=== PATIENT | male | born 1960 | race Caucasian/White ===

== ENCOUNTER 2020-03-14 16:27 | Inpatient (IN) | payer OTHER, SELFPAY ==
[~2020-03-14 16:27] MED LIST: Iopamidol-370 76% 500 ML 1 ML ONE
[2020-03-14 17:22] LABS: #Lymphocytes 1.4 thou/uL (1.20-3.40); #Neutrophils 12.1 thou/uL (1.40-6.50); %Basophils 0.2 % (0.0-1.0); %Eosinophils 0.1 % (0.0-10.0); %Lymphocytes 8.9 % (21.0-51.0); %Monocytes 12.8 % (0.0-10.0); Hemoglobin 12.7 g/dL (14.0-18.0); Mean Corpuscular HGB CONC 32.3 g/dL (32.0-36.0); Mean Corpuscular Volume 99.1 fL (78.0-98.0); Mean Platelet Volume 8.4 fL (7.4-10.4); Platelet Count 173 thou/uL (130-400); Red Blood Cell (RBC) Count 3.96 mill/uL (4.70-6.10); White Blood Cell (WBC) Count 15.5 thou/uL (4.8-10.8)
[2020-03-14 17:48] LABS: ALT (SGPT) 11 U/L (8-55); AST (SGOT) 13 U/L (5-34); Albumin 2.9 g/dL (3.4-4.8); Alkaline Phosphatase 81 U/L (40-110); Anion Gap 11 mmol/L (10-20); BUN (Urea Nitrogen) 11 mg/dL (8.4-25.7); Bilirubin, Total 1.7 mg/dL (0.2-1.2); Calc. Creatinine Clearance 0 mL/min (70-130); Calcium 7.9 mg/dL (7.8-10.44); Carbon Dioxide 23 mmol/L (23-31); Chloride 103 mmol/L (98-107); Estimated GFR-MDRD Greater than 90; Globulin 2.6 g/dL (2.4-3.5); Glucose 106 mg/dL (80-115); Potassium 3.4 mmol/L (3.5-5.1); Protein, Total 5.5 g/dL (5.8-8.1); Sodium 134 mmol/L (136-145)
--- NOTE | 2020-03-14 19:06 | ULT ---
ULTRASOUND WITH DOPPLER DUPLEX VENOUS LOWER EXTREMITY LEFT: 03/14/20 HISTORY: 59-year-old male with left lower extremity erythema and pain. TECHNIQUE: Color flow Doppler, spectral waveform analysis of pulsed Doppler, and carreon-scale imaging with zeke lauren and augmentation, were used to evaluate the left common femoral, femoral, popliteal, posterior t ibial, and superficial femoral, veins; and the proximal portions of the profunda femoral and greater saphenous, veins. FINDINGS: There is normal compressibility, demonstration of blood flow by color Doppler and pulsed Doppler, and response to augmentation, in all interrogated veins. There is somewhat severe soft tissue edema at t he distal aspect of the left leg. There are multiple enlarged lymph nodes in the left groin. The larg est one is 4.6 x 3 cm. IMPRESSION: 1. No deep vein thrombosis in the left lower extremity. 2. Somewhat severe edema of distal left leg. 3. Left groin lymphadenopathy. jn[] POS: OFF
--- NOTE | 2020-03-14 20:04 | CT ---
CTA THORAX WITH CONTRAST: 03/14/20 (Computed Tomographic Angiography, chest(noncoronary) with contrast material, and image postprocessin g) (PE protocol) HISTORY: 59-year-old male with cough. TECHNIQUE: IV injection of iodinated contrast: 100 mL Isovue 370. Scan acquisition timing attempted to coincide with iodinated contrast bolus reaching maximal density in pulmonary arteries. 3D MIP reconstructions. FINDINGS: Images of the lower lung zones are degraded by patient breathing motion artifact. Diffuse centrilobular emphysematous changes throughout both lungs, moderate. Broad thin band of chronic consolidation at right middle lobe, broadly abutting anterior and anterola teral pleural surface, with chronic striations radiating centrally. Larger, more confluent such consolidation broadly abutting the posterior pleural surface at the right posterior costophrenic angle. Striations radiating anteriorly in parachute configuration. These nichols ges are suggestive of asbestos related lung disease. There is noncalcified soft tissue density material at the bilateral sintia, right greater than left. No thoracic aortic aneurysm, dissection, or rupture. Questionable tiny right pleural effusion. No pneum othorax. No evidence of thrombus in pulmonary arteries, including branches. There is low attenuation mass-like opacity inferior and medial to the lower portion of the right hilu m, with nonopacified branches extending out from it into the right lower lobe. This is inseparable fr om the left atrium. This may represent thrombus within the pulmonary vein centrally and peripherally. IMPRESSION: 1. No evidence of pulmonary thromboembolism. 2. Broad pleural based chronic appearing pulmonary consolidations involving right middle lobe an d right lower lobe, suggestive of round atelectasis, suggestive of asbestos related lung disease. 3. Diffuse moderate centrilobular emphysema. 4. Bilateral hilar lymphadenopathy. 5. Suspicious for thrombus of right lower lobe pulmonary vein and its branches. jn[] POS: OFF
[2020-03-14 21:17] LABS: Bilirubin 1+ (Negative); Blood, Urine Negative (Negative); Clarity Clear (Clear); Glucose, Urine (Dipstick) Normal (Negative); Ketone, Urine Negative (Negative); Leukocyte Negative Leu/uL (Negative); Nitrite Negative (Negative); Protein, Urine (Dipstick) 20 mg/dL (Neg-Trace)
[2020-03-14 21:20] LABS: Specific Gravity, Urine 1.053 (1.002-1.036)
[2020-03-14 21:42] LABS: SARS-CoV-2 NAA Rapid Test Not Detected (NotDetected)
[2020-03-14] MEDS ORDERED: Ondansetron PF 4 MG/2 ML Vial IVP PRN (21:58)
[2020-03-14] MEDS ORDERED: Labetalol HCl 100 MG/20 ML VIAL SLOW IVP PRN (21:58)
[2020-03-14] MEDS ORDERED: hydrALAZINE 20 MG/ML VIAL SLOW IVP PRN (21:58)
[2020-03-14] MEDS ORDERED: cloNIDine 0.1 MG TAB PO PRN (21:58)
[2020-03-14] MEDS ORDERED: Promethazine HCl 12.5 MG in Sodium Chloride 0.9% 50 ML IVPB PRN (21:58)
[2020-03-14] MEDS ORDERED: HYDROcodone/Acetaminophen 5/325 mg Tablet PO PRN (21:58)
[2020-03-14] MEDS ORDERED: Morphine 2 MG/ML VIAL SLOW IVP PRN (21:58)
[2020-03-14] MEDS ORDERED: CEFAZOLIN 2 GM in Premix Bag 1 BAG IVPB SCH (22:00)
[2020-03-14] MEDS ORDERED: Electrolyte Replacement Protoc 1 EACH EACH FS SCH (22:00)
--- NOTE | 2020-03-14 22:03 | PDOC.HHP ---
Hospitalist HPI - History of Present Illness Rash History of Present Illness: Patient is a 59 year old male with PMH tobacco abuse who presents as transfer from [place] for LLE swelling and rash x 2 days. Patient reports developing a rapid spreading rash, no focus or purulence, across most of L leg from ankle to knee. He also has a nonproductive cough x 2 days. In [place], labs notable for leukocytosis, normal lactate. CXR with bilateral infiltrates. tachycardic/ leukocytosis, sepsis protocol started, patient recieved 30 cc/kg bolus, blood cultures drawn there, given vanc/cefepime, area of rash demarkated, patient transferred here. covid rule out ordered and negative. LLE doppler ordered and negative for clot. CTA chest here concerning for broad consolidations of RLL and RML, concerning for asbestos related lung injury. Patient to be admitted for further workup and care. Hospitalist ROS - Review of Systems Constitutional: denies: fever, chills, sweats, weakness, malaise, other Eyes: denies: pain, vision change, conjunctivae inflammation, eyelid inflammation, redness, other ENT: denies: ear pain, ear discharge, nose pain, nose discharge, nose congestion , mouth pain, mouth swelling, throat pain, throat swelling, other Respiratory: reports: cough. denies: dry, shortness of breath, hemoptysis, SOB with excertion, pleuritic pain, sputum, wheezing, other Cardiovascular: denies: chest pain, palpitations, orthopnea, paroxysmal noc. dyspnea, edema, light headedness, other Gastrointestinal: denies: nausea, vomiting, abdominal pain, diarrhea, constipation, melena, hematochezia, other Genitourinary: denies: dysuria, frequency, incontinence, hematuria, retention, other Musculoskeletal: denies: neck pain, shoulder pain, arm pain, back pain, hand pain, leg pain, foot pain, other Skin: reports: rash (per hpi). denies: lesions, valentín, bruising, other Neurological: denies: weakness, numbness, incoordination, change in speech, confusion, seizures, other All other systems reviewed; all pertinent +/- noted in HPI/Subj - Medication Medications: reviewed, see admission documents for home medications Hospitalist History - Past Medical History Other Medical History: no pertinent PMH - Past Surgical History Past Surgical History: reports: no pertinent history - Family History Family History: reports: no pertinent history - Social History Smoking Status: Current every day smoker Tobacco Type: cigarettes Drugs: reports: marijuana - Exam General Appearance: NAD, awake alert Eye: PERRL, anicteric sclera ENT: normocephalic atraumatic, no oropharyngeal lesions, moist mucosa Neck: supple, symmetric, no JVD, no thyromegaly, no lymphadenopathy, no carotid bruit Heart: RRR, no murmur, no gallops, no rubs, normal peripheral pulses Respiratory: CTAB, no wheezes, no rales, no ronchi, normal chest expansion, no tachypnea, normal percussion Gastrointestinal: soft, non-tender, non-distended, normal bowel sounds, no palpable masses, no hepatomegaly, no splenomegaly, no bruit Extremities: no cyanosis, no clubbing, no edema Skin: normal turgor Skin - other findings: diffuse erythema and edema of most of L leg, demarkated. no focus/induratio Neurological: cranial nerve grossly intact, normal sensation to touch, no weakness, no focal deficits, no new deficit Musculoskeletal: normal tone, normal strength, no muscle wasting Psychiatric: normal affect, normal behavior, A&O x 3 Hospitalist Results - Labs Result Diagrams: 03/14/20 17:12 03/14/20 17:12 Lab results: WBC 15.5 thou/uL (4.8-10.8) H 03/14/20 17:12 Hgb 12.7 g/dL (14.0-18.0) L 03/14/20 17:12 Hct 39.3 % (42.0-52.0) L 03/14/20 17:12 MCV 99.1 fL (78.0-98.0) H 03/14/20 17:12 Plt Count 173 thou/uL (130-400) 03/14/20 17:12 Neutrophils % 78.0 % (42.0-75.0) H 03/14/20 17:12 Sodium 134 mmol/L (136-145) L 03/14/20 17:12 Potassium 3.4 mmol/L (3.5-5.1) L 03/14/20 17:12 Chloride 103 mmol/L (98-107) 03/14/20 17:12 Carbon Dioxide 23 mmol/L (23-31) 03/14/20 17:12 BUN 11 mg/dL (8.4-25.7) 03/14/20 17:12 Creatinine 0.65 mg/dL (0.7-1.3) L 03/14/20 17:12 Glucose 106 mg/dL (80-115) 03/14/20 17:12 Calcium 7.9 mg/dL (7.8-10.44) 03/14/20 17:12 Total Bilirubin 1.7 mg/dL (0.2-1.2) H 03/14/20 17:12 AST 13 U/L (5-34) 03/14/20 17:12 ALT 11 U/L (8-55) 03/14/20 17:12 Alkaline Phosphatase 81 U/L (40-110) 03/14/20 17:12 C-Reactive Protein 16.49 mg/dL (= or < 0.5) H 03/14/20 17:12 Serum Total Protein 5.5 g/dL (5.8-8.1) L 03/14/20 17:12 Albumin 2.9 g/dL (3.4-4.8) L 03/14/20 17:12 Urine Ketones Negative mg/dL (Negative) 03/14/20 20:57 Urine Blood Negative (Negative) 03/14/20 20:57 Urine Nitrite Negative (Negative) 03/14/20 20:57 Ur Leukocyte Esterase Negative Kenzie/uL (Negative) 03/14/20 20:57 INTERPRETATION CBC abnormal White blood cell count elevated Neutrophils elevated Chemistry normal Liver functions abnormal Total bilirubin elevated C-reactive protein elevated D-dimer elevated. I agree with ED lab interpretation Additional comment: VITAL SIGNS [facility] Mar 14, 2020 21:03 ASIA Winn, Anna BP: 113/79 Pulse: 102 Resp: 22 Temp: 98.1 (Oral) Pain: 0 O2 sat: 96 on (Room Air) Time: 03/14/2020 21:03. Hospitalist H&P A/P - Plan Plan: Patient is a 59 year old male with PMH tobacco abuse who presents as transfer from [place] for LLE swelling and rash x 2 days. # nonpurulent cellulitis # sepsis secondary to cellulitis 2 days of rapidly spreading erythema and edema LLE with no focus of infection, leukocytosis and tachycardia but normal lactic acid. got 30cc/kg bolus. DVT duplex negative. - admit to floor - start ancef - follow blood cultures drawn at [place] - area on leg demarkated, if spread worsens beyond this would likely need broadening of abx and possible surgical evaluation # nonproductive cough, abnormal lung imaging CTA chest here concerning for broad consolidations of RLL and RML, concerning for asbestos related lung injury. covid swab negative - patient would benefit from outpatient pulmonary referral on discharge - azithromycin started DVT/GI ppx
[2020-03-14] MEDS ORDERED: Electrolyte Replacement Protocol FS PRN (22:15)
[2020-03-14] MEDS ORDERED: Azithromycin 500 MG in Syringe 0 ML IVPB ONE (22:27)
[2020-03-14] MEDS ORDERED: Azithromycin 500 MG in Sodium Chloride 0.9% 250 ML 250 ML IVPB SCH (23:00)
[2020-03-15] MEDS: Nicotine 14 MG PATCH TD SCH ×2 (01:12→21:13)
[2020-03-15] MEDS: CEFAZOLIN 2 GM in Premix Bag 1 BAG IVPB SCH ×3 (01:12→18:35)
[2020-03-15 07:37] LABS: Hemoglobin 14.2 g/dL (14.0-18.0); Mean Corpuscular HGB CONC 31.6 g/dL (32.0-36.0); Mean Corpuscular Hemoglobin 32.1 pg (27.0-31.0); Mean Platelet Volume 9.4 fL (7.4-10.4); Platelet Count 177 thou/uL (130-400); RBC Distribution Width 13.3 % (11.5-14.5); Red Blood Cell (RBC) Count 4.43 mill/uL (4.70-6.10); White Blood Cell (WBC) Count 21.4 thou/uL (4.8-10.8)
[2020-03-15 07:57] LABS: Anion Gap 14 mmol/L (10-20); BUN (Urea Nitrogen) 7 mg/dL (8.4-25.7); Calc. Creatinine Clearance 164 mL/min (70-130); Calcium 8.1 mg/dL (7.8-10.44); Carbon Dioxide 18 mmol/L (23-31); Chloride 106 mmol/L (98-107); Estimated GFR-MDRD Greater than 90; Glucose 117 mg/dL (80-115); Potassium 3.9 mmol/L (3.5-5.1); Sodium 134 mmol/L (136-145)
[2020-03-15 08:55] LABS: Band 2 % (5-11); Eosinophils 1 % (0-10); Lymphocytes 16 % (21-51); MDiff Complete? YES; Monocytes 10 % (0-10); Neutrophil 71 % (42-75); Platelet Morphology Comment Appears Adequate; Polychromasia SLIGHT = 2-3 cells (100X) (0-2/hpf)
[2020-03-15] MEDS: Famotidine 20 MG TAB PO SCH ×2 (08:59→21:13)
[2020-03-15] MEDS: Polyethylene Glycol 3350 17 GM Packet PO SCH (09:01)
--- NOTE | 2020-03-15 09:56 | PDOC.HOSPP ---
- Subjective Encounter Date: 03/15/20 Encounter Time: 08:00 Subjective: Patient seen for follow-up regarding cellulitis. Reports left foot pain. Denies fevers. Reports cough. No sputum. - Objective Vital Signs & Weight: Vital Signs (12 hours) Temp Pulse Resp BP Pulse Ox 03/15/20 08:19 98.9 F 95 14 119/65 99 03/15/20 04:00 100.0 F H 106 H 16 105/66 03/15/20 00:54 92 L Weight Weight 181 lb Result Diagrams: 03/15/20 07:29 03/15/20 07:29 Additional Labs: I reviewed patient's labs and MAR EKG Reviewed by me: Yes (Telemetry: NSR) Hospitalist ROS - Review of Systems Respiratory: reports: cough, dry. denies: shortness of breath, hemoptysis, SOB with excertion, pleuritic pain, sputum, wheezing Cardiovascular: denies: chest pain, palpitations, orthopnea, paroxysmal noc. dyspnea, edema, light headedness Gastrointestinal: denies: nausea, vomiting, abdominal pain, diarrhea, constipation, melena, hematochezia Genitourinary: denies: dysuria, frequency, incontinence, hematuria, retention Musculoskeletal: reports: leg pain, foot pain. denies: neck pain, shoulder pain , arm pain, back pain, hand pain Skin: reports: rash. denies: lesions, valentín, bruising - Medication Medications: Active Medications Generic Name Dose Route Start Last Admin Trade Name Freq PRN Reason Stop Dose Admin Famotidine 20 mg 03/15/20 09:00 03/15/20 08:59 Pepcid PO 20 mg BID CALE Administration Cefazolin Sodium/Dextrose 2 gm 50 mls @ 100 mls/hr 03/15/20 01:00 03/15/20 09 :05 / Device IVPB 50 mls [id number] CALE Administration Nicotine 14 mg 03/14/20 23:59 03/15/20 01:12 Nicoderm Patch TD 14 mg [id number] CALE Administration Polyethylene Glycol 17 gm 03/15/20 09:00 03/15/20 09:01 Miralax PO 17 gm DAILY CALE Administration - Exam General Appearance: awake alert Eye: anicteric sclera ENT: moist mucosa Neck: supple, symmetric, no thyromegaly, no lymphadenopathy Heart: RRR, no gallops, no rubs, normal peripheral pulses Respiratory: CTAB, no wheezes, no rales, no ronchi Gastrointestinal: soft, non-tender, non-distended, normal bowel sounds Extremities: no cyanosis Skin: normal turgor Skin - other findings: Left leg cellulitis as documented Psychiatric: normal affect, normal behavior, A&O x 3 Hosp A/P (1) Cellulitis of left lower extremity Code(s): L03.116 - CELLULITIS OF LEFT LOWER LIMB Status: Acute (2) Pulmonary venous thrombosis Code(s): I26.99 - OTHER PULMONARY EMBOLISM WITHOUT ACUTE COR PULMONALE Status : Acute (3) Hyponatremia Code(s): E87.1 - HYPO-OSMOLALITY AND HYPONATREMIA Status: Acute (4) Tobacco abuse Code(s): Z72.0 - TOBACCO USE Status: Chronic (5) Marijuana use Code(s): F12.90 - CANNABIS USE, UNSPECIFIED, UNCOMPLICATED Status: Chronic (6) Hypokalemia Code(s): E87.6 - HYPOKALEMIA Status: Resolved - Plan Continue Ancef. Consult ID service for opinion and help with management. Patient has pulmonary venous thrombosis, needs work-up for hypercoagulability. Consult oncology. Continue nicotine patch. Hyponatremia mild, likely asymptomatic. Patient has been counseled regarding tobacco and marijuana cessation.
[2020-03-15] MEDS ORDERED: Iopamidol-370 76% 500 ML 1 ML ONE (14:24)
--- NOTE | 2020-03-15 16:00 | CT ---
CT ABDOMEN AND PELVIS WITH IV CONTRAST: 03/15/20 INDICATIONS: Abdominal pain. FINDINGS: Images through the lung bases show confluent atelectasis and infiltrate in the right lung base with s mall bilateral effusions. Liver, spleen and pancreas unremarkable. Stomach and duodenum unremarkable. Adrenal glands normal. Kidneys unremarkable. Small bowel loops normal caliber. Colon unremarkable. Aorta normal caliber with atherosclerotic liang e. No mass or adenopathy. No evidence of free fluid. Images through the pelvis show unremarkable urin bryce bladder. Prostate shows mild hypertrophy. Osseous structures show degenerative changes in the spi ne with prominent bridging osteophytes from the thoracic and lumbar vertebrae. Images through the lower pelvis show left inguinal adenopathy. There are numerous enlarged left ingui nal lymph nodes with at least one measuring up to 4 cm. Smaller nonspecific nodes in the right inguinal region. There are nonspecific periaortic lymph nodes which measure up to 1 cm. No evidence of retroperitoneal or abdominal adenopathy identified. IMPRESSION: 1. Left inguinal adenopathy. 2. Nonspecific periaortic retroperitoneal lymph nodes. 3. Small pleural effusions with focal atelectasis or consolidation in the posterior right lung b ase. POS: AGW
[2020-03-15] MEDS: Azithromycin 500 MG in Sodium Chloride 0.9% 250 ML 250 ML IVPB SCH (17:27)
[2020-03-15 17:56] LABS: INR-International Normal Ratio 1.2; Prothrombin Time 15.5 sec (12.0-14.7)
[2020-03-15 17:58] LABS: D-Dimer Test 1.43 *mcg/mL (0.27-0.43)
[2020-03-15] MEDS: Sodium Chloride 0.9% 1,000 ML IV SCH (18:36)
[2020-03-15] MEDS ORDERED: Azithromycin 500 MG in Sodium Chloride 0.9% 250 ML 250 ML IVPB SCH (21:00)
[2020-03-15] MEDS ORDERED: Azithromycin 500 MG in Syringe 0 ML IVPB SCH (21:00)
[2020-03-15] MEDS: Guaifenesin DM 100-10/5 ML UDCUP PO PRN (21:13)
--- NOTE | 2020-03-15 21:30 | CON ---
DATE OF CONSULTATION: REASON FOR CONSULT: Questionable pulmonary vein thrombosis. HISTORY OF PRESENT ILLNESS: Mr. Ferrell is a 59-year-old gentleman with past medical history of tobacco and alcohol use, who presented to [place] [facility] for left lower extremity swelling and redness x2 days. He has had intermittent fever. He met sepsis criteria and was admitted for antibiotics. He did have a nonproductive cough, so underwent a CT angio of the chest, which showed diffuse emphysema, asbestos-related lung disease, bilateral hilar lymphadenopathy and a low- attenuation mass opacity inferior medial to the lower portion of the right hilum, which may represent thrombus within the pulmonary vein centrally and peripherally. The patient underwent an ultrasound of his left lower extremity, which was negative for DVT. However, he did have multiple enlarged lymph nodes measuring 4.6 x 3 cm. The patient states he has smoked for at least 45 years pack a day, history of drinking but he states he quit several months ago. No chest pain, back pain, or shortness of breath. No abdominal discomfort. His primary complaint is mild pain in his left lower extremity. The patient has no history of clotting. No family history of clotting disorder. CBC on admission showed leukocytosis with a white count of 15.5. D-dimer was mildly elevated. C-reactive protein was 16.49. He had bilirubin in his urine and he was COVID negative. He is resting comfortably at bedside. He states he has not seen a doctor in many years. PAST MEDICAL HISTORY: 1. Tobacco use. 2. History of alcohol use. States quit 6 months ago. PAST SURGICAL HISTORY: None. ALLERGIES: NO KNOWN DRUG ALLERGIES. HOME MEDICATIONS: None. FAMILY HISTORY: No history of blood disorder, bladder clotting disorders. SOCIAL HISTORY: Single. Lives with his sister. REVIEW OF SYSTEMS: A 10-point review of systems is negative except for noted in HPI. PHYSICAL EXAMINATION: VITAL SIGNS: Temperature 98.3, pulse is 95, respiratory rate 12, BP is 116/74. He is 95% on room air. GENERAL: Thin male, in no acute distress. HEENT: Normocephalic, atraumatic. Pupils are equal and reactive to light. NECK: Supple. CV: Regular rate and rhythm. LUNGS: Clear anterior. ABDOMEN: Soft and nontender. Bowel sounds are positive. EXTREMITIES: He has left lower extremity erythema and swelling. LYMPH: He has palpable lymphadenopathy in his left groin. None in his right groin, axilla, or cervical region. NEUROLOGICAL: Nonfocal. PERTINENT LABORATORY DATA AND X-RAYS: Current WBCs 21.4, hemoglobin 14.2, hematocrit 45.0, platelet count is 177,000. He has 71% neutrophils, 2% bands, 16% lymphocytes. D-dimer is 1.13. Sodium 134, potassium 3.9, chloride is 106, CO2 is 18, BUN is 7, creatinine 0.55, calcium 8.1, bilirubin 1.7, AST is 13, ALT is 11, alkaline phosphatase is 81. C-reactive protein 16.49. Serum total protein 5.5, albumin 2.9, globulin 2.6, is 0.44. Urine showed 1+ bilirubin and 4+ . COVID not detected. Radiology per HPI. ASSESSMENT: 1. Left lower extremity cellulitis with erythema and inguinal lymphadenopathy. 2. Questionable pulmonary vein thrombosis. 3. Bilateral hilar lymphadenopathy. DISCUSSION: The patient had a CT scan of his abdomen and pelvis for his inguinal lymphadenopathy. There is nonspecific periaortic retroperitoneal lymph nodes, but otherwise negative. Lymph nodes are likely due to his significant cellulitis of his left lower extremity. He has no history of clotting in the past. It is unclear if this is a true pulmonary vein thrombosis. He also has bilateral hilar lymphadenopathy and emphysemic changes in his lung. We will ask Dr. Veras to give his opinion regarding the findings. If it is felt that this is a true pulmonary vein thrombosis, he will need anticoagulation probably with Coumadin. We will check some labs and follow up on patient. Case has been discussed with Dr. Serra. Job ID: [id number] [facility]
--- NOTE | 2020-03-15 21:49 | CON ---
DATE OF CONSULTATION: 03/15/2020 REASON FOR CONSULTATION: Cellulitis. 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 He has been started on cefazolin. His initial BP 106/78, temperature was 98.3, respirations 22, and O2 saturation 98 room air. The other findings on arrival included a rhonchi, which were distributed diffusely in the lung [place]. Heart exam, tachycardia, but regular rate. Abdomen, soft. Left extremity inflammatory changes noted below. Other findings included white cell count 15,000, hemoglobin 12.7, and platelets 173 with predominance of neutrophils, and creatinine 0.65, bilirubin 1.7, CRP 16.49, and albumin 2.9. Urinalysis with 4+ urobilinogen. COVID was not detected. Two sets of blood cultures thus far no growth. Mr. Ferrell is awake, alert, and oriented. He is pleasant and he is having moderate to marked pain in the left lower extremity. Coughing intermittently. He has chronic dyspnea that forces him to sleep in a recliner chair for the past 11 years. He [place] with family. PAST MEDICAL HISTORY: COPD, chronic smoking, and some cancer in the jaw, which appears to be in remission. ALLERGIES: NONE. FAMILY HISTORY: Noncontributory. CURRENT MEDICATIONS: 1. Azithromycin. 2. Cefazolin. 3. P.R.N. medications. PHYSICAL EXAMINATION: VITAL SIGNS: T-max 100, BP 116/74, pulse 95, respirations 12, and O2 saturation 95. SKIN: With area of deep tissue injury in the presacral region gluteal area with small little ulcers and the area of erythema and swelling in the left leg extending from the area immediately below the knee all the way to the foot in a circumferential distribution. There is some blistering associated with this. Lateral left ankle, the yellow fluid within. There is a fairly large blister. Peripheral IV access. He is voiding in the urinal. There is some erythema extending to the medial left thigh. An area of lymphadenitis in the left groin noticeable. No other areas of lymphadenopathy. HEENT: Ocular movements conjugate. Oral cavity with numerous missing teeth, remainder ones with marked decay. NECK: Supple. No jugular vein distention. LUNGS: Symmetric air entry. No obvious crackles or wheezing. HEART: S1 and S2. Regular rate. There was evidence of large airway sounds, which are consistent with secretion. He is coughing intermittently during the examination. Heart rate is regular. No murmurs. The markedly diminished heart sounds. ABDOMEN: Soft, not distended or tender. No bladder distention. EXTREMITIES: No joint inflammatory activity. The left leg is markedly swollen. Pulses 1+ in dorsalis pedis. Cap refill normal. NEUROLOGIC: Cognitive function appears to be intact. Neuro examination nonfocal except for limitations imposed by inflammatory process left lower extremity. LABORATORY DATA: White cell count is up to 21.4, hemoglobin 14, platelets 177, and 71% neutrophils. Creatinine is 0.55. PSA was 0.44. The patient had a venous ultrasound that showed no evidence of deep vein thrombosis. There is a CT of chest angiogram with evidence of chronic appearing pulmonary consolidations in the right middle lobe and right lower lobe suggestive of atelectases or asbestos related lung disease. Emphysema noted. Hilar lymphadenopathy, possible thrombus in the right lower lobe pulmonary vein branches. Abdomen and pelvis CT with inguinal adenopathy, periaortic retroperitoneal lymph nodes. ASSESSMENT: Chronic smoking, chronic obstructive pulmonary disease with emphysema, possible asbestosis, evidence of pulmonary venous thrombus or possible pulmonary venous thrombus, cellulitis, and left lower extremity. DISCUSSION: The cellulitis is quite pronounced and the patient has been started on cefazolin. Most cases of cellulitis in this sort of scenario are secondary to beta-hemolytic streptococci. Sometimes gram-negative rods can be associated with this as well. I have seen cases with Pseudomonas E, coli, typically Pseudomonas. will present with ulceration and areas of necrosis and usually seen in patients with cirrhosis or renal disease or other sources of immunosuppression. In this case, beta-hemolytic strep is the more likely scenario. Staphylococcus aureus sometimes can mimic streptococcal cellulitis early on, but eventually an abscess becomes more obvious. I do not see evidence to suggest abscess formation in this case. The pulmonary venous thrombi are quite rare and usually associated with malignancy, operative procedures, atrial fibrillation, and so on. There are no guidelines to direct management of pulmonary venous thrombi and so anticoagulation sometimes is considered. I may want to ask Pulmonary to make recommendations on the management for this finding and if it needs to be confirmed with additional imaging studies. Job ID: [id number] MTDD
[2020-03-16] MEDS: CEFAZOLIN 2 GM in Premix Bag 1 BAG IVPB SCH ×3 (01:22→21:54)
[2020-03-16 04:47] LABS: Anion Gap 12 mmol/L (10-20); BUN (Urea Nitrogen) 6 mg/dL (8.4-25.7); Calc. Creatinine Clearance 150 mL/min (70-130); Calcium 7.9 mg/dL (7.8-10.44); Carbon Dioxide 28 mmol/L (23-31); Chloride 101 mmol/L (98-107); Estimated GFR-MDRD Greater than 90; Glucose 97 mg/dL (80-115); Potassium 3.5 mmol/L (3.5-5.1); Sodium 137 mmol/L (136-145)
[2020-03-16 04:51] LABS: #Eosinphils 0.1 thou/uL (0.0-0.7); #Lymphocytes 1.8 thou/uL (1.20-3.40); #Monocytes 1.4 thou/uL (0.11-0.59); %Basophils 0.1 % (0.0-1.0); %Eosinophils 1.1 % (0.0-10.0); %Lymphocytes 13.6 % (21.0-51.0); %Monocytes 10.4 % (0.0-10.0); %Neutrophils 74.8 % (42.0-75.0); Hemoglobin 12.6 g/dL (14.0-18.0); Mean Corpuscular Hemoglobin 32.2 pg (27.0-31.0); Mean Corpuscular Volume 97.6 fL (78.0-98.0); Mean Platelet Volume 8.2 fL (7.4-10.4); Platelet Count 222 thou/uL (130-400); RBC Distribution Width 13.2 % (11.5-14.5); Red Blood Cell (RBC) Count 3.93 mill/uL (4.70-6.10); White Blood Cell (WBC) Count 13.3 thou/uL (4.8-10.8)
[2020-03-16] MEDS ORDERED: Potassium Chloride 20 MEQ TAB PO SCH (05:00)
[2020-03-16] MEDS: Famotidine 20 MG TAB PO SCH ×2 (09:17→21:34)
[2020-03-16] MEDS: Polyethylene Glycol 3350 17 GM Packet PO SCH (09:19)
[2020-03-16] MEDS: Guaifenesin DM 100-10/5 ML UDCUP PO PRN ×2 (09:28→21:34)
[2020-03-16] MEDS: Acetaminophen 325 MG TAB PO PRN (13:03)
[2020-03-16] MEDS: Azithromycin 500 MG in Sodium Chloride 0.9% 250 ML 250 ML IVPB SCH (15:36)
[2020-03-16] MEDS: Sodium Chloride 0.9% 1,000 ML IV SCH (15:36)
--- NOTE | 2020-03-16 17:32 | CON ---
DATE OF CONSULTATION: 03/16/2020 CONSULTING PROVIDER: Rachael Gutierrez. REASON FOR CONSULTATION: Pulmonary venous thrombosis. HISTORY OF PRESENT ILLNESS: This is a 59-year-old male, who presented to the hospital on 03/14/2020 with left foot redness and swelling. He was diagnosed with cellulitis and has been started on broad-spectrum IV antibiotics. For reasons that are not completely clear to me, underwent a CT of the chest. This showed some nonspecific mediastinal adenopathy, some old pleural-based scarring changes and what looks to be a right sided pulmonary vein thrombosis. I actually took this to a second radiologist for an opinion and he agreed that this was probably pulmonary vein thrombosis given the location. The patient has no previous history of blood clotting disorder that he can think of. No previous history of stroke. PAST MEDICAL HISTORY: 1. COPD. 2. Cancer of the jaw bone. PAST SURGICAL HISTORY: None. SOCIAL HISTORY: Smokes every day. Also uses marijuana. FAMILY MEDICAL HISTORY: Unremarkable. ALLERGIES: NONE. MEDICATIONS: Prior to admission, Tylenol. REVIEW OF SYSTEMS: Twelve-point review of systems is otherwise negative. PHYSICAL EXAMINATION: VITAL SIGNS: Temperature 99.4 with a T-max of 100, pulse 108, respirations 19, O2 saturation 98% on room air, blood pressure 122/76. GENERAL: He is a disheveled appearing male, who is in no distress. HEENT: Remarkable for poor dentition. NECK: No adenopathy or JVD. LUNGS: Clear breath sounds bilaterally with no wheezing. CARDIOVASCULAR: S1 and S2. Regular. ABDOMEN: Soft, nontender, nondistended. EXTREMITIES: He has redness and swelling in his left foot almost up to his left knee. LABORATORY DATA: White blood cell count 13.3, hematocrit 38.3, and platelet count 222. Sodium 137, potassium 3.5, chloride 101, CO2 of 28, BUN 6, creatinine 0.6, and glucose 97. INR 1.2, PTT 48. D-dimer 1.43. COVID test negative. CT was reviewed in detail. ASSESSMENT: 1. Pulmonary vein thrombosis-this is a very unusual diagnosis, but in reviewing the films myself and also reviewing the films with the radiologist, I agree that this is most likely possibility. These can be either related to malignancy, blood clotting disorder, or infection. Again, this is an exceedingly rare diagnosis and not much as written in the literature about how to treat it. Anticoagulation and antibiotic therapy are mentioned. I do not think much would be gathered by further imaging studies as about the only thing else that could be done is a transesophageal echo. 2. Pleural-based scarring-probably related to emphysema/chronic obstructive pulmonary disease. 3. Mediastinal lymphadenopathy-small and probably not large enough to work up at this time. RECOMMENDATIONS: 1. Ideally, I think the patient should be anticoagulated for at least 3 months and re-image. However, in his particular situation, there are several problems present. First of all, he does not have any doctors outside this facility. 2. He has no health insurance to be able afford the medications. Therefore, in order to proceed with anticoagulation, we will need some assistance from the social contact worker and setting up finding for the patient. I would prefer to use Eliquis or Xarelto if at all possible as I think it is going to be impossible for him to be monitored with Coumadin. Ideally, it would be nice to get a PET scan; however, the patient is not going to be able to afford that test. As far as antibiotics are concerned, I would defer to Dr. Norton on this, but I think the patient should have a prolonged course of antibiotics. 3. In terms of the other findings on CT scan, this can be followed on serial CT scans if this can be afforded by the patient. The above encompassed 75 minutes time, of that greater than 50% spent with the patient and/or the patient's unit in the hospital. Job ID: [id number]
[2020-03-16] MEDS: Rivaroxaban 15 MG TAB PO SCH (21:34)
[2020-03-16] MEDS ORDERED: Vancomycin 1 GM in Premix Bag 1 BAG IVPB SCH (23:45)
--- NOTE | 2020-03-16 23:56 | PDOC.HOSPP ---
- Subjective Encounter Date: 03/16/20 Encounter Time: 09:00 Subjective: no overnight events. this morning, endorses pus on his left leg. otherwise no complaints. - Objective Vital Signs & Weight: Vital Signs (12 hours) Temp Pulse Resp BP BP Pulse Ox 03/16/20 21:32 98.1 F 89 18 130/81 97 03/16/20 15:35 97.7 F 98 18 113/67 95 03/16/20 12:30 100.3 F H 75 18 125/88 93 L Weight Weight 185 lb I&O: 03/15/20 03/16/20 03/17/20 06:59 06:59 06:59 Intake Total 3150 1100 Output Total 2205 950 Balance 945 150 Result Diagrams: 03/16/20 04:07 03/16/20 04:07 Hospitalist ROS - Review of Systems Constitutional: denies: chills, sweats Respiratory: denies: cough, shortness of breath, pleuritic pain Cardiovascular: denies: chest pain, palpitations - Medication Medications: Active Medications Generic Name Dose Route Start Last Admin Trade Name Freq PRN Reason Stop Dose Admin Acetaminophen 650 mg 03/14/20 21:58 03/16/20 13:03 Tylenol PO 650 mg Q4H PRN Administration Headache/Fever/Mild Pain (1-3) Albuterol/Ipratropium 3 ml 03/14/20 21:58 03/15/20 22:04 Duoneb NEB 3 ml Q2H PRN Administration SOB &/or Wheezing Famotidine 20 mg 03/15/20 09:00 03/16/20 21:34 Pepcid PO 20 mg BID CALE Administration Guaifenesin/Dextromethorphan 15 ml 03/14/20 21:58 03/16/20 21:34 Robitussin Dm PO 15 ml Q4H PRN Administration Cough Azithromycin 500 mg/ Sodium 250 mls @ 250 mls/hr 03/15/20 15:00 03/16/20 15: 36 Chloride IVPB 250 mls 1500 CALE Administration Sodium Chloride 1,000 mls @ 50 mls/hr 03/15/20 18:30 03/16/20 15:36 Normal Saline 0.9% IV 1,000 mls .Q20H CALE Administration Nicotine 14 mg 03/14/20 23:59 03/15/20 21:13 Nicoderm Patch TD 14 mg 2359 CALE Administration Polyethylene Glycol 17 gm 03/15/20 09:00 03/16/20 09:19 Miralax PO Not Given DAILY [facility] Rivaroxaban 15 mg 03/16/20 21:00 03/16/20 21:34 Xarelto PO 15 mg BID CALE Administration - Exam General Appearance: NAD, awake alert Neck: no JVD Heart: RRR, no gallops, no rubs Respiratory: CTAB, no wheezes, no rales, no ronchi Extremities - other findings: LLE: erythema, swelling, confluent pretibial and medial maleolus pustules Psychiatric: A&O x 3 Hosp A/P - Plan #pulmonary vein thrombosis -per radiology and pulm, possible -started OAC per pulm; CM consulted #purulent cellulitis changed to vanc, culture pending ELOS: 2-3 nights
[2020-03-16] MEDS ORDERED: Vancomycin HCl 1.75 GM in Sodium Chloride 0.9% 500 ML IVPB SCH (23:59)
[2020-03-17] MEDS: Nicotine 14 MG PATCH TD SCH (00:45)
[2020-03-17] MEDS: Acetaminophen 325 MG TAB PO PRN (04:44)
[2020-03-17 05:50] LABS: #Eosinphils 0.3 thou/uL (0.0-0.7); #Lymphocytes 1.8 thou/uL (1.20-3.40); #Monocytes 1.1 thou/uL (0.11-0.59); #Neutrophils 6.6 thou/uL (1.40-6.50); %Basophils 0.3 % (0.0-1.0); %Eosinophils 2.8 % (0.0-10.0); %Neutrophils 67.8 % (42.0-75.0); Mean Corpuscular HGB CONC 32.6 g/dL (32.0-36.0); Mean Corpuscular Hemoglobin 32.6 pg (27.0-31.0); Mean Corpuscular Volume 99.9 fL (78.0-98.0); Mean Platelet Volume 7.8 fL (7.4-10.4); Platelet Count 284 thou/uL (130-400); RBC Distribution Width 13.2 % (11.5-14.5); Red Blood Cell (RBC) Count 3.98 mill/uL (4.70-6.10); White Blood Cell (WBC) Count 9.8 thou/uL (4.8-10.8)
[2020-03-17 06:11] LABS: Anion Gap 10 mmol/L (10-20); BUN (Urea Nitrogen) 8 mg/dL (8.4-25.7); Calc. Creatinine Clearance 162 mL/min (70-130); Calcium 8.4 mg/dL (7.8-10.44); Carbon Dioxide 29 mmol/L (23-31); Chloride 102 mmol/L (98-107); Estimated GFR-MDRD Greater than 90; Glucose 102 mg/dL (80-115); Potassium 3.9 mmol/L (3.5-5.1); Sodium 137 mmol/L (136-145)
[2020-03-17] MEDS: Polyethylene Glycol 3350 17 GM Packet PO SCH (09:17)
[2020-03-17] MEDS: Rivaroxaban 15 MG TAB PO SCH ×2 (09:18→21:05)
[2020-03-17] MEDS: Vancomycin HCl 1.25 GM in Sodium Chloride 0.9% 250 ML 250 ML IVPB SCH ×2 (09:29→17:06)
[2020-03-17] MEDS: Sodium Chloride 0.9% 1,000 ML IV SCH (10:16)
--- NOTE | 2020-03-17 17:37 | PDOC.HOSPP ---
- Subjective Encounter Date: 03/17/20 Encounter Time: 10:00 Subjective: no overnight events. this morning, feeling well and has no ocmplaints. Endorses improvement in LLE pain and mobility - Objective Vital Signs & Weight: Vital Signs (12 hours) Temp Pulse Resp BP Pulse Ox 03/17/20 16:26 82 16 03/17/20 15:20 97.9 F 88 16 113/82 100 03/17/20 12:08 98.1 F 91 16 111/75 100 03/17/20 07:54 97.9 F 97 15 115/71 100 Weight Weight 185 lb I&O: 03/16/20 03/17/20 03/18/20 06:59 06:59 06:59 Intake Total 3150 2300 860 Output Total 2205 1970 550 Balance 945 330 310 Result Diagrams: 03/17/20 05:29 03/17/20 05:29 Additional Labs: Accuchecks 03/17/20 03/17/20 03/17/20 17:08 10:47 06:19 POC Glucose 89 135 H 105 Hospitalist ROS - Review of Systems Constitutional: denies: chills, sweats Respiratory: denies: cough, shortness of breath Cardiovascular: denies: chest pain, palpitations, orthopnea, paroxysmal noc. dyspnea Gastrointestinal: denies: nausea, vomiting, abdominal pain - Medication Medications: Active Medications Generic Name Dose Route Start Last Admin Trade Name Freq PRN Reason Stop Dose Admin Acetaminophen 650 mg 03/14/20 21:58 03/17/20 04:44 Tylenol PO 650 mg Q4H PRN Administration Headache/Fever/Mild Pain (1-3) Albuterol/Ipratropium 3 ml 03/14/20 21:58 03/17/20 16:26 Duoneb NEB 3 ml Q2H PRN Administration SOB &/or Wheezing Guaifenesin/Dextromethorphan 15 ml 03/14/20 21:58 03/16/20 21:34 Robitussin Dm PO 15 ml Q4H PRN Administration Cough Sodium Chloride 1,000 mls @ 50 mls/hr 03/15/20 18:30 03/17/20 10:16 Normal Saline 0.9% IV 1,000 mls .Q20H CALE Administration Vancomycin HCl 1.25 gm/ Sodium 250 mls @ 166.667 mls/hr 03/17/20 09:00 17:06 Chloride IVPB 250 mls 0100,0900,1700 CALE Administration Nicotine 14 mg 03/14/20 23:59 03/17/20 00:45 Nicoderm Patch TD 14 mg 9 CALE Administration Polyethylene Glycol 17 gm 03/15/20 09:00 03/17/20 09:17 Miralax PO 17 gm DAILY CALE Administration Rivaroxaban 15 mg 03/16/20 21:00 03/17/20 09:18 Xarelto PO 15 mg BID CALE Administration Sodium Chloride 10 ml 03/17/20 09:00 03/17/20 09:19 Flush - Normal Saline IVF 10 ml Q12HR CALE Administration - Exam General Appearance: NAD, awake alert Neck: no JVD Heart: RRR, no murmur, no gallops, no rubs Respiratory: CTAB, no wheezes, no rales, no ronchi Gastrointestinal: soft, non-tender, non-distended, normal bowel sounds Extremities - other findings: LLE: overlying dressing Psychiatric: normal affect, normal behavior, A&O x 3 Hosp A/P - Plan #pulmonary vein thrombosis -continue OAC per pulm; CM consulted #purulent cellulitis changed to vanc (03/16), wound culture pending wound care consulted ID onboard Full code ELOS: 1-2 nights
[2020-03-17] MEDS: Guaifenesin DM 100-10/5 ML UDCUP PO PRN (21:05)
[2020-03-17 23:23] LABS: Vancomycin, Trough 17.5 ug/mL
[2020-03-18] MEDS: Nicotine 14 MG PATCH TD SCH (02:03)
[2020-03-18] MEDS: Vancomycin HCl 1.25 GM in Sodium Chloride 0.9% 250 ML 250 ML IVPB SCH ×3 (02:03→17:20)
[2020-03-18 04:07] LABS: #Eosinphils 0.3 thou/uL (0.0-0.7); #Lymphocytes 2.1 thou/uL (1.20-3.40); #Monocytes 0.9 thou/uL (0.11-0.59); #Neutrophils 5.7 thou/uL (1.40-6.50); %Basophils 0.4 % (0.0-1.0); %Eosinophils 3.3 % (0.0-10.0); %Lymphocytes 23.1 % (21.0-51.0); %Monocytes 10.2 % (0.0-10.0); Hemoglobin 13.1 g/dL (14.0-18.0); Mean Corpuscular HGB CONC 32.4 g/dL (32.0-36.0); Mean Corpuscular Hemoglobin 31.9 pg (27.0-31.0); Mean Corpuscular Volume 98.3 fL (78.0-98.0); Mean Platelet Volume 8.5 fL (7.4-10.4); Platelet Count 335 thou/uL (130-400); RBC Distribution Width 13.4 % (11.5-14.5); White Blood Cell (WBC) Count 9.1 thou/uL (4.8-10.8)
[2020-03-18] MEDS: Sodium Chloride 0.9% 1,000 ML IV SCH (06:04)
[2020-03-18] MEDS: Rivaroxaban 15 MG TAB PO SCH (08:43)
[2020-03-18] MEDS: Polyethylene Glycol 3350 17 GM Packet PO SCH (08:43)
[2020-03-18 12:28] LABS: Factor VIII Test 253.1 % ACTIVE (56-157)
[2020-03-18 12:29] LABS: Protein C Activity 58 % (78-152)
--- NOTE | 2020-03-18 13:37 | PRG ---
DATE OF SERVICE: 03/17/2020 SUBJECTIVE: He feels better, had no acute complaints. OBJECTIVE: VITAL SIGNS: Temperature 97.9, pulse 97, respirations 15, O2 saturation 100% on room air, blood pressure 115/71. HEENT: Clear. NECK: No JVD. CHEST: Clear. EXTREMITIES: Left lower leg is wrapped in an Jameel bandage. LABORATORY DATA: White blood cell count 9.8, hematocrit 39.7, platelet count 284. Sodium 137, BUN 8, creatinine 0.5, glucose 102. ASSESSMENT: 1. Pulmonary vein thrombosis. 2. Nonsignificant mediastinal adenopathy. 3. Lung scarring. RECOMMENDATIONS: See my consult from yesterday. We will follow. Job ID: [id number]
[2020-03-18 14:40] VITALS: BMI 27.3
[2020-03-18 16:12] VITALS: BP 131/84; TEMP 98.5
--- NOTE | 2020-03-18 18:27 | PRG ---
DATE OF SERVICE: 03/18/2020 SUBJECTIVE: Mr. Ferrell is doing well. His foot swelling has dissipated. He has had no adverse effects on anticoagulations. OBJECTIVE: LUNGS: Show clear lung [place]. CARDIAC: Rhythm regular. EXTREMITIES: Decreased edema in left lower extremity. ASSESSMENT: 1. Pulmonary venous thrombosis. 2. Cellulitis. PLAN: Anticoagulation for at least 3 months. Antibiotic therapy as deemed by ID and Internal Medicine available as needed. Job ID: [id number]
--- NOTE | 2020-03-19 07:05 | DIS ---
DATE OF ADMISSION: 03/14/2020 DATE OF DISCHARGE: 03/18/2020 HOSPITAL COURSE: Mr. Ferrell is a 59-year-old male with medical history of tobacco abuse, who presented with acute left lower extremity swelling and redness. He was diagnosed with purulent cellulitis and was treated with antibiotics, initially with Keflex and then transitioned to vancomycin. The patient responded to antibiotics well and was transitioned to oral Bactrim for 7 additional days pending followup appointment with his primary care physician. In addition to that, CT chest showed pleural-based consolidation, centrilobular emphysema, and a low-attenuation opacity inferior medial to the right ilium that is inseparable from the left atrium. Pulmonology was consulted and after discussion with the radiologist, decided to treat the patient with Xarelto for 3 months for pulmonary vein thrombosis, pending repeat CT imaging. As for the pleural-based scarring, per Pulmonology related to emphysema, possible COPD. On the day of discharge, the patient was hemodynamically stable. Left lower extremity cellulitis has significantly improved and he had no complaints. PHYSICAL EXAMINATION: VITAL SIGNS: Blood pressure 131/79, pulse 94, respiratory rate 14, oxygen saturation 100% on room air, temperature 98.2. GENERAL EXAM: Lying comfortably in bed. Awake and alert. HEENT: Normocephalic, atraumatic. HEART EXAM: Regular rate and rhythm. No murmurs, gallops, or rubs. NECK: No JVD. RESPIRATORY: Clear to auscultation bilaterally. No wheezing, rales, or rhonchi. EXTREMITY EXAM: Left lower extremity with erythema and swelling significantly improved compared to the day of admission, however, remains extensive from the patient's ankle nearly to the thigh level. PSYCHIATRIC EXAM: Proper mood and affect. Alert and oriented x3. MEDICATION LIST: Old medications: The patient was on no medications prior to admission. New medications: 1. Xarelto 15 mg p.o. b.i.d. for 20 days, then change to 20 mg daily for 70 additional days. 2. Bactrim Double Strength one tablet b.i.d. for 7 days pending PCP appointment. Of note, the patient did not have insurance, so the heel caser was consulted and [facility] pending establishment of care with PCP. Job ID: [id number]
[2020-03-20 14:49] LABS: Cardiolipin IgA Ab 2.6 APL-U/mL (<14 Negative); Cardiolipin IgG Ab 1.2 GPL-U/mL (<10 Negative); Cardiolipin IgM Ab 2.2 MPL-U/mL (<10 Negative); EliA APS New Method **** NEW METHOD ****
--- NOTE | 2020-03-21 12:38 | PQF ---
CLINICAL DOCUMENTATION CLARIFICATION FORM: Dear :Will Sainz MD Date / Time: 03/21/2020 Please exercise your independent, professional judgment in responding to the clarification form. Clinical indicators are provided on the bottom of this form for your review Please check appropriate box(es) to clarify if the following diagnosis has been ruled in our ruled out: [ ] Ruled in Sepsis [ ] Continue to treat [ ] Resolved [ x] Ruled out Sepsis [ ] Improving [ ] Cannot rule out diagnosis [ ] Other diagnosis (Please specify if any) [ ] Unable to determine Physician Signature: Date/Time: For continuity of documentation, please document condition throughout progress notes and discharge summary. Thank You. To be completed by CDI/Coding staff for physician review: Present Dear :Will Sainz MD Date / Time: 03/21/2020 Please exercise your independent, professional judgment in responding to the clarification form. Clinical indicators are provided on the bottom of this form for your reviewClinical Indicators - Signs / Symptoms / Labs Results and Location in Medical Record [ x] Sepsis secondary to cellulitis H&P on 03/14 [ x ] Cellulitis is quite pronounced and the patient has been started on cefazolin Consult on 03/15 [ x] WBC-15.5 H&P on 03/14 [ x] Tachycardia/leukocytosis, sepsis protocol started, pt received 30cc/kg bolus H&P on 03/14 Present Risk Factors Results and Location in Medical Record [ x] LLE Cellulitis H&P on 03/14 [ x ] Aged person 59 yrs H&P on 03/14 [ ] [ ] Present Treatments Results and Location in Medical Record [ x ] Sepsis protocol started H&P on 03/14 [x ] Azithromycin 500 mg Medication from 03/15 to 03/17 [ x ] Vancomycin 1gm IV Medication on 03/16,03/17 [ x ] Vancomycin 1.25gm IV Medication on 03/17,03/18 CDS/Cable Worker Helper Signature: AAS Phone #: Date/Time: 03/21/2020 This is a permanent part of the Medical Record [facility]
[2020-03-22 12:39] LABS: HEX PHOS LA Tube 1 54.5 SEC; HEX PHOS LA Tube 2 43.2 SEC; Hexagonal Phospholipid Neut 11.3 SEC (0-8.0)
[2020-03-26 14:11] LABS: Activated Protein C Resistance 2.7 ratio (.)
== END 2020-03-18 19:40 | disposition home or self-care (01) | DRG 602 ==
LOC: ERS 16:27 → 2NO 20:26
PROVIDERS: ADMIT Internal Medicine; ATTEND Internal Medicine
DX: L03.116 Cellulitis of left lower limb (principal); I26.99 Other pulmonary embolism without acute cor pulmonale; E87.1 Hypo-osmolality and hyponatremia; F17.210 Nicotine dependence, cigarettes, uncomplicated; E87.6 Hypokalemia; F12.90 Cannabis use, unspecified, uncomplicated; R59.1 Generalized enlarged lymph nodes; J44.9 Chronic obstructive pulmonary disease, unspecified; Z20.828 Contact with and (suspected) exposure to other viral communicable diseases; Z71.51 Drug abuse counseling and surveillance of drug abuser
CPT/HCPCS: 36415; 36416; 71275; 74177; 80048; 80202; 81003; 81240; 81241; 83090; 84153; 85025; 85240; 85300; 85303; 85305; 85307; 85379; 85598; 85610; 85730; 86140; 86147; 87070; 87086; 87205; 90471; 90732; 94640; G0009; J0456; J0690; J3370; J7030; J7050; J7620; Q9967; U0002